=== PATIENT | male | born 1955 | race Two or more races ===

== ENCOUNTER → 2016-10-17 | Outpatient (CLI) | payer MEDICARE, MEDICAID ==
[~2016-10-17] MED LIST: AMLO10TA2 PO; ASPI-621 PO; CALC300T4 PO; CALC667C PO; ESOM40CA PO; HYDR-3240 PO; ISON300T4 PO; LISI1TAB5 PO; METO25TA35 PO; OMEP40CA6 PO; PYRI100T2 PO; REGADENOSON 0.4 MG/5 ML SYRINGE ONE
== END | disposition home or self-care (01) ==
LOC: CFH 08:21
PROVIDERS: ATTEND Internal Medicine Nephrology
DX: Z01.818 Encounter for other preprocedural examination (principal); N18.6 End stage renal disease; I34.0 Nonrheumatic mitral (valve) insufficiency; I37.1 Nonrheumatic pulmonary valve insufficiency
CPT/HCPCS: 71020; 78452; 93017; 93306; A9502; J2785

== ENCOUNTER → 2017-03-24 | Outpatient (CLI) | payer MEDICARE, MEDICAID ==
[~2017-03-24] MED LIST changes: -REGADENOSON 0.4 MG/5 ML SYRINGE ONE
[2017-03-24 14:47] LABS: BLOOD UREA NITROGEN 25 mg/dL (7-18)
[2017-03-24 14:49] LABS: HEMATOCRIT 40.4 % (39.2-51.8); HEMOGLOBIN 13.8 g/dL (13.7-18.0); WHITE BLOOD COUNT 8.2 x10^3/uL (3.4-10)
[2017-03-24 14:51] LABS: ASPARTATE AMINO TRANSFERASE 28 U/L (15-37)
[2017-03-24 15:53] LABS: HIV 1&2 ANTIBODY SCREEN Nonreactive (Nonreactive); HIV-1 p24 ANTIGEN Nonreactive (Nonreactive)
[2017-03-25 13:44] LABS: HEP B SURF. AB < 3.1 mIU/mL (0.0-10.0)
== END | disposition home or self-care (01) ==
LOC: LAB 14:07
PROVIDERS: ATTEND Internal Medicine Nephrology
DX: Z01.818 Encounter for other preprocedural examination (principal); N18.6 End stage renal disease
CPT/HCPCS: 36415; 80053; 84153; 85025; 85610; 85730; 86592; 86635; 86644; 86663; 86664; 86665; 86703; 86704; 86706; 86787; 86803; 86900; 87340; 87899; G0103; G0435

== ENCOUNTER 2017-05-02 09:39 | Day surgery (SDC) | payer MEDICARE, MEDICAID ==
[~2017-05-02] VITALS: Ht 172.7 cm; Wt 77.7 kg
[2017-05-02] MEDS ORDERED: SODIUM CHLORIDE 0.9% 1,000 ML IV SCH (10:13)
[2017-05-02] MEDS ORDERED: SEVE800T8 PO (10:20)
[2017-05-02 10:24] VITALS: BP 134/77
[2017-05-02] MEDS ORDERED: LIDOCAINE 1%, 2ML SQ PRN (10:30)
[2017-05-02] MEDS ORDERED: PLEASE ENTER HEIGHT AND WEIGHT MC SCH (10:30)
[2017-05-02 10:52] LABS: ALBUMIN 3.8 g/dL (3.4-5.0); ANION GAP 13 mmol/L (5-15); CALCIUM 8.9 mg/dL (8.5-10.1); CHLORIDE 98 mmol/L (98-107)
[2017-05-02 10:55] LABS: ALANINE AMINOTRANSFERASE 47 U/L (12-78); ALKALINE PHOSPHATASE 89 U/L (45-117); BILIRUBIN,TOTAL 0.8 mg/dL (0.2-1.0); TOTAL PROTEIN 8.5 g/dL (6.4-8.2)
[2017-05-02] MEDS ORDERED: LIDOCAINE-MPF 2% ,5ML ONE (10:55)
[2017-05-02] MEDS ORDERED: PROPOFOL 10 MG/ML, 20ML ONE ×2 (10:55)
== END 2017-05-02 12:40 | disposition home or self-care (01) ==
LOC: OUT 09:39
PROVIDERS: ATTEND Internal Medicine
DX: Z12.11 Encounter for screening for malignant neoplasm of colon (principal); K57.30 Diverticulosis of large intestine without perforation or abscess without bleeding; K64.8 Other hemorrhoids; K21.9 Gastro-esophageal reflux disease without esophagitis; N18.6 End stage renal disease; Z99.2 Dependence on renal dialysis; E89.0 Postprocedural hypothyroidism; Z98.890 Other specified postprocedural states; Z79.82 Long term (current) use of aspirin; Z79.899 Other long term (current) drug therapy; Z86.010 Personal history of colon polyps
CPT/HCPCS: 36415; 80053; 93005; G0105; J2704; J3490; J7030

== ENCOUNTER → 2020-07-05 | Outpatient (CLI) | payer MEDICARE, MEDICAID ==
[~2020-07-05] MED LIST changes: +AMLO-211 PO; -AMLO10TA2 PO; -ASPI-621 PO; +ASPI81TA45 PO; +HYDR-1067 PO; -HYDR-3240 PO; +ISON300T10 PO; -ISON300T4 PO; +LISI1TAB39 PO; -LISI1TAB5 PO; +OMEP40CA42 PO; -OMEP40CA6 PO; -PYRI100T2 PO; +PYRI100T9 PO; +SEVE800T8 PO
== END | disposition home or self-care (01) ==
LOC: RAD 15:08
PROVIDERS: ATTEND Nurse Practitioner Gerontology
DX: Z01.818 Encounter for other preprocedural examination (principal); J98.4 Other disorders of lung; M25.78 Osteophyte, vertebrae; I12.0 Hypertensive chronic kidney disease with stage 5 chronic kidney disease or end stage renal disease; N18.6 End stage renal disease; N17.9 Acute kidney failure, unspecified; R80.9 Proteinuria, unspecified; E21.3 Hyperparathyroidism, unspecified; Z99.2 Dependence on renal dialysis
CPT/HCPCS: 71046